=== PATIENT | male | born 1995 | race Caucasian/White ===

== ENCOUNTER 2019-07-11 20:16 | Emergency (ER) | payer OTHER ==
[~2019-07-11] VITALS: Ht 177.8 cm; Wt 92.3 kg
[2019-07-11] MEDS ORDERED: ANUS2.5C2 TOP (21:35)
[2019-07-11 21:54] VITALS: BP 138/79
== END 2019-07-11 22:00 | disposition home or self-care (01) ==
LOC: M ED 20:16
DX: K64.5 Perianal venous thrombosis (principal); F17.200 Nicotine dependence, unspecified, uncomplicated

== ENCOUNTER 2019-08-15 16:22 | Emergency (ER) | payer OTHER ==
[~2019-08-15] VITALS: Ht 177.8 cm; Wt 94.1 kg
[~2019-08-15 16:22] MED LIST: ANUS2.5C2 TOP
[2019-08-15] MEDS ORDERED: ONDANSETRON 4MG/2ML VIAL (J2405) IV ONE (17:00)
[2019-08-15] MEDS ORDERED: KETOROLAC 30 MG/ML VIAL (J1885) IV ONE (17:00)
[2019-08-15] MEDS ORDERED: ISOVUE-370 76% 100ML VIAL (Q9967) As Ordered ONE (17:05)
[2019-08-15 17:17] LABS: BASO % 0.3 % (0.0-1.0); EOS # 0.1 10^3/uL (0.0-0.5); EOS % 0.6 % (0.0-3.0); HEMATOCRIT 51.9 % (42.0-52.0); HEMOGLOBIN 17.1 g/dl (13.5-17.5); LYMPH # 0.5 10^3/uL (1.5-5.0); LYMPH % 4.7 % (24.0-44.0); MEAN CORPUSCULAR HEMOGLOBIN 29.5 pg (27.0-33.0); MEAN CORPUSCULAR HGB CONC 32.9 g/dl (32.0-36.5); MEAN CORPUSCULAR VOLUME 89.6 fl (80.0-96.0); MONO # 0.4 10^3/uL (0.0-0.8); MONO % 3.4 % (0.0-5.0); NEUTROPHILS # 10.2 10^3/uL (1.5-8.5); NEUTROPHILS % 90.6 % (36.0-66.0); PLATELET COUNT, AUTOMATED 183 10^3/uL (150-450); RED BLOOD COUNT 5.79 10^6/uL (4.30-6.10); WHITE BLOOD COUNT 11.3 10^3/uL (4.0-10.0)
--- NOTE | 2019-08-15 17:31 | REPVR ---
PROCEDURE INFORMATION: Exam: CT Abdomen And Pelvis With Contrast Exam date and time: 08/15/2019 4:50 PM Age: 23 years old Clinical indication: Abdominal pain; Additional info: Rlq pain TECHNIQUE: Imaging protocol: Computed tomography of the abdomen and pelvis with intravenous contrast. Axial, coronal and sagittal reformatted images were created and reviewed. Radiation optimization: All CT scans at this facility use at least one of these dose optimization techniques: automated exposure control; mA and/or kV adjustment per patient size (includes targeted exams where dose is matched to clinical indication); or iterative reconstruction. Contrast material: ISOVUE 370; Contrast volume: 100 ml; Contrast route: IV; COMPARISON: No relevant prior studies available. FINDINGS: Liver: Mild hepatomegaly. Gallbladder and bile ducts: No radiodense gallstones. No biliary ductal dilatation. Pancreas: Unremarkable. Spleen: Unremarkable. Adrenals: Unremarkable. Kidneys and ureters: No mass. No radiodense calculi. No hydronephrosis. Stomach and bowel: Non-dilated, fluid filled, mildly hyperemic loops of small bowel, some of which are mildly thickened. No obstruction. No pneumatosis. Appendix: Mild distention of the mid appendix with distal tapering. No significant periappendiceal inflammatory change. Intraperitoneal space: No free fluid. No organized fluid collection. No free air. Vasculature: Unremarkable. No aneurysm. Lymph nodes: Small mesenteric lymph nodes, likely reactive. No pathologically enlarged lymph nodes. Bladder: Mild circumferential urinary bladder wall thickening, likely secondary to underdistention. Reproductive: Unremarkable. Bones/joints: No acute osseous abnormality. Soft tissues: Small, fat-containing umbilical hernia. IMPRESSION: 1. Non-dilated, fluid filled, mildly hyperemic loops of small bowel, some of which are mildly thickened. Findings are compatible with nonspecific enteritis. No abscess, obstruction or free air. 2. Mild distention of the mid appendix with distal tapering. No significant periappendiceal inflammatory change. Acute appendicitis is considered unlikely. If the patient has persistent or worsening clinical signs and symptoms of acute appendicitis, followup imaging may be obtained. 3. Additional findings, as above. Electronically signed by: Kingston Solitario On 08/15/2019 17:31:24 PM
[2019-08-15 17:41] LABS: ALBUMIN 4.1 GM/DL (3.2-5.2); BILIRUBIN,DIRECT 0.2 MG/DL (0.0-0.2); TOTAL PROTEIN 7.3 GM/DL (6.4-8.2)
[2019-08-15 17:46] LABS: INR 1.1; PROTHROMBIN TIME 13.9 SECONDS (11.8-14.0)
[2019-08-15 17:47] LABS: PARTIAL THROMBOPLASTIN TIME 27.5 SECONDS (25.0-38.4)
[2019-08-15] MEDS ORDERED: ONDA4TAB6 PO (18:14)
[2019-08-15 18:21] VITALS: BP 135/59
== END 2019-08-15 18:29 | disposition home or self-care (01) ==
LOC: M ED 16:22
DX: K52.9 Noninfective gastroenteritis and colitis, unspecified (principal); F17.210 Nicotine dependence, cigarettes, uncomplicated
CPT/HCPCS: 74177; 80047; 80076; 81001; 83690; 85025; 85610; 85730; 96374; 96375; 99284; J1885; J2405; Q9967

== ENCOUNTER 2019-10-14 23:08 | Emergency (ER) | payer OTHER ==
[~2019-10-14] VITALS: Ht 177.8 cm; Wt 100.0 kg
[~2019-10-14 23:08] MED LIST changes: +ONDA4TAB6 PO
[2019-10-14] MEDS ORDERED: PRIL20TA2 PO (23:19)
[2019-10-15 00:14] LABS: INFLUENZA A AMPLIFICATION NEGATIVE (NEGATIVE); INFLUENZA B AMPLIFICATION POSITIVE (NEGATIVE)
[2019-10-15] MEDS ORDERED: BENZONATATE 100 MG CAP PO ONE (00:45)
[2019-10-15] MEDS ORDERED: ACETAMINOPHEN 325 MG TAB PO ONE (00:45)
[2019-10-15] MEDS ORDERED: ONDANSETRON 4 MG ORAL DISINTEGRATING TAB (Q0162 PER 1MG) PO ONE (00:45)
[2019-10-15] MEDS ORDERED: ALBUTEROL SULFATE 2.5 MG/0.5 ML INH NEB SOLN NEB ONE (00:45)
[2019-10-15] MEDS ORDERED: PROAAER10 INH (01:38)
[2019-10-15] MEDS ORDERED: TESS100C PO (01:38)
[2019-10-15] MEDS ORDERED: OSEL75CA PO (01:38)
[2019-10-15] MEDS ORDERED: ONDA4TAB6 PO (01:38)
[2019-10-15 01:45] VITALS: BP 122/65
[2019-10-15] MEDS ORDERED: OSELTAMIVIR PHOSPHATE 75 MG CAP (TAMIFLU) PO ONE (01:45)
--- NOTE | 2019-10-15 09:35 | REP ---
Clinical: Cough and rales . Comparison: None . Technique: PA and lateral. Findings: The mediastinum and cardiac silhouette are normal. The lung ramos are clear and without acute consolidation, effusion, or pneumothorax. The skeletal structures are intact and normal. Impression: 1. No acute cardiopulmonary process. Electronically Signed by Eleazar Rose MD 10/15/2019 09:26 A
== END 2019-10-15 01:48 | disposition home or self-care (01) ==
LOC: M ED 23:08
DX: J10.1 Influenza due to other identified influenza virus with other respiratory manifestations (principal); Z79.899 Other long term (current) drug therapy
CPT/HCPCS: 71046; 87502; 94640; 99284; Q0162

== ENCOUNTER 2019-11-16 17:16 | Emergency (ER) | payer OTHER ==
[~2019-11-16] VITALS: Ht 177.8 cm; Wt 99.9 kg
[2019-11-16 17:16] VITALS: BP 126/67
[~2019-11-16 17:16] MED LIST changes: +OSEL75CA PO; +PRIL20TA2 PO; +PROAAER10 INH; +TESS100C PO
[2019-11-16] MEDS ORDERED: ONDANSETRON 4 MG ORAL DISINTEGRATING TAB (Q0162 PER 1MG) PO ONE (17:45)
[2019-11-16] MEDS ORDERED: KETOROLAC TROMETHAMINE 10 MG TAB PO ONE (17:45)
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
[2019-11-16] MEDS ORDERED: ONDA4TAB6 PO (18:10)
== END 2019-11-16 18:15 | disposition home or self-care (01) ==
LOC: M ED 17:16
DX: S09.90XA Unspecified injury of head, initial encounter (principal); R11.0 Nausea; R42 Dizziness and giddiness; W51.XXXA Accidental striking against or bumped into by another person, initial encounter; Y92.138 Other place on military base as the place of occurrence of the external cause; Y93.89 Activity, other specified; Y99.1 Military activity; K22.70 Barrett's esophagus without dysplasia; Z79.899 Other long term (current) drug therapy
CPT/HCPCS: 70450; 99282; Q0162

== ENCOUNTER 2019-12-30 02:52 | Observation (INO) | payer OTHER ==
[~2019-12-30] VITALS: Ht 180.3 cm; Wt 96.0 kg
[2019-12-30 03:24] LABS: BASO % 0.2 % (0.0-1.0); EOS # 0.7 10^3/uL (0.0-0.5); EOS % 7.5 % (0.0-3.0); HEMATOCRIT 42.5 % (42.0-52.0); HEMOGLOBIN 14.6 g/dl (13.5-17.5); LYMPH # 1.4 10^3/uL (1.5-5.0); LYMPH % 15.2 % (24.0-44.0); MEAN CORPUSCULAR HEMOGLOBIN 29.2 pg (27.0-33.0); MEAN CORPUSCULAR HGB CONC 34.4 g/dl (32.0-36.5); MONO # 0.7 10^3/uL (0.0-0.8); NEUTROPHILS # 6.4 10^3/uL (1.5-8.5); NEUTROPHILS % 69.5 % (36.0-66.0); PLATELET COUNT, AUTOMATED 332 10^3/uL (150-450); WHITE BLOOD COUNT 9.3 10^3/uL (4.0-10.0)
[2019-12-30 03:26] LABS: VENOUS BASE EXCESS 0.7 (-2.0-2.0); VENOUS HCO3 24.3 MEQ/L (23.0-27.0); VENOUS O2 SATURATION 89.3 % (60.0-80.0); VENOUS PARTIAL PRESSURE CO2 35.7 mmHg (38.0-50.0); VENOUS PARTIAL PRESSURE O2 53.9 mmHg (30.0-50.0); VENOUS STANDARD HCO3 24.9 MEQ/L; VENOUS TOTAL CO2 25.4 MEQ/L (24.0-28.0)
[2019-12-30 03:49] LABS: ALBUMIN 3.4 GM/DL (3.2-5.2); ALT/SGPT 24 U/L (12-78); BILIRUBIN,DIRECT 0.1 MG/DL (0.0-0.2); BILIRUBIN,TOTAL 0.4 MG/DL (0.2-1.0); BLOOD UREA NITROGEN 10 MG/DL (7-18); CARBON DIOXIDE LEVEL 27 MEQ/L (21-32); CHLORIDE LEVEL 103 MEQ/L (98-107); CK-MB VALUE MASS 1.5 NG/ML (<3.6); CPK CREATINE PHOSPHOKINASE 199 U/L (39-308); CREATININE FOR GFR 1.01 MG/DL (0.70-1.30); GLOMERULAR FILTRATION RATE > 60.0 (>60); GLUCOSE, FASTING 98 MG/DL (70-100); MB/CK RELATIVE INDEX 0.75 (< OR =4); POTASSIUM SERUM 3.6 MEQ/L (3.5-5.1); SODIUM LEVEL 138 MEQ/L (136-145); TOTAL PROTEIN 6.8 GM/DL (6.4-8.2); TROPONIN I < 0.02 NG/ML (< 0.10)
[2019-12-30] MEDS ORDERED: COMBIVENT RESPIMAT 100-20MCG INHALER 4GM INH ONE (04:15)
[2019-12-30] MEDS ORDERED: ISOVUE-370 76% 100ML VIAL As Ordered ONE (05:33)
--- NOTE | 2019-12-30 06:24 | REPVR ---
PROCEDURE INFORMATION: Exam: CT Angiography Chest With Contrast Exam date and time: 12/30/2019 5:26 AM Age: 24 years old Clinical indication: Cough; Additional info: Cough, hypoxia, tachycardia TECHNIQUE: Imaging protocol: Computed tomographic angiography of the chest with intravenous contrast. 3D rendering: MIP and/or 3D reconstructed images were created by the technologist. Radiation optimization: All CT scans at this facility use at least one of these dose optimization techniques: automated exposure control; mA and/or kV adjustment per patient size (includes targeted exams where dose is matched to clinical indication); or iterative reconstruction. Contrast material: ISO; Contrast volume: 75 ml; Contrast route: AC; COMPARISON: CR Chest, 1 view 12/30/2019 3:16 AM FINDINGS: Pulmonary arteries: The main pulmonary artery measures 26 mm. No pulmonary embolism is identified. Aorta: The ascending thoracic aorta measures 27 mm. Lungs: Mild bilateral reticulonodular infiltrates, greatest in the lower lobes and right upper lobe. Pleural space: Unremarkable. No pneumothorax. No pleural effusion. Heart: Unremarkable. No cardiomegaly. No pericardial effusion. Mediastinum: There is soft tissue conforming to the anterior mediastinum consistent with residual thymic tissue. Lymph nodes: Borderline bilateral hilar adenopathy. Bones/joints: Unremarkable. No acute fracture. Soft tissues: Unremarkable. IMPRESSION: 1. Mild bilateral reticulonodular infiltrates, greatest in the lower lobes and right upper lobe consistent with pneumonia. 2. Borderline bilateral hilar adenopathy which is likely reactive. 3. Otherwise negative CTA chest. No pulmonary embolism is identified. Electronically signed by: Eric Jacobson On 12/30/2019 06:23:37 AM
[2019-12-30] MEDS ORDERED: AZITHROMYCIN 250MG TABLET PO ONE (06:30)
[2019-12-30] MEDS ORDERED: PROAAER10 INH (06:37)
--- NOTE | 2019-12-30 06:39 | ECGEPIP ---
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
--- NOTE | 2019-12-30 08:06 | REP ---
Clinical: Cough . Comparison: 10/15/2019 . Findings: The mediastinum and cardiac silhouette are stable and within normal limits for portable technique. Very subtle scattered alveolar infiltrates are suggested (left greater than right). No effusion. No pneumothorax. Skeletal structures are intact. Impression: A very subtle multifocal pneumonitis is suggested. Electronically Signed by Eleazar Rose MD 12/30/2019 07:57 A
--- NOTE | 2019-12-30 08:42 | HPEPDOC ---
[facility] Medical History & Physical Date of Admission December 30, 2019 Date of Service: December 30, 2019 Attending Physician: HUMERA MONTES MD History and Physical CHIEF COMPLAINT: SOB HISTORY OF PRESENT ILLNESS: 24-year-old smoker with no past medical history resides from home with sudden onset of shortness of breath, pleuritic chest pain and productive cough. Patient was feeling well up until this morning when he developed the symptoms, denies sick contacts, denies fever, no other complaints. 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 Patient was hypoxemic in the ED, requiring supplemental oxygen of 2 L via nasal cannula, CTA chest shows bilateral reticulonodular infiltrates, respiratory viral panel is positive for mycoplasma pneumonia. Patient denies any nausea, vomiting, bowel pain, diarrhea or constipation. 10 point review of systems negative except for above PAST MEDICAL HISTORY: 1. None. PAST SURGICAL HISTORY: 1. None SOCIAL HISTORY: 1 PPD smoker denies alcohol use denies drug use FAMILY HISTORY: Positive for breast cancer ALLERGIES: Please see below. HOME MEDICATIONS: Please see below. PHYSICAL EXAMINATION: VITAL SIGNS: Please see below. GENERAL: No distress HEENT: Normocephalic, atraumatic, moist mucous membranes NECK: Supple CARDIOVASCULAR EXAMINATION: S1, S2, no murmurs RESPIRATORY EXAMINATION: Scattered rhonchi, no wheezing ABDOMINAL EXAMINATION: Soft, nontender, nondistended, positive bowel sounds EXTREMITIES: Range of motion intact SKIN: No rash NEUROLOGICAL EXAMINATION: Alert and oriented 3, no focal deficits PSYCHIATRIC EXAMINATION: Calm and cooperative LABORATORY DATA: See below. IMAGING: CT showing bilateral reticulonodular infiltrates MICROBIOLOGY: Please see below. ASSESSMENT: 24 y.o smoker with no medical history is being admitted for hypoxemia secondary to Mycoplasma Pneumonia. PLAN: 1. Mycoplasma pneumonia. Status post of tamoxifen 500 mg in the ED, continue azithromycin 250 mg daily for 4 more days, supportive care. 2. Hypoxemia. Secondary to above, supplemental oxygen as needed to maintain O2 sats between 88-92%. I suspect patient will be titrated off oxygen over the next 24-48 hours and discharged home. Vital Signs Vital Signs Date Time Temp Pulse Resp B/P (MAP) Pulse Ox O2 Delivery O2 Flow Rate FiO2 12/30/19 07:13 99.9 18 94 Nasal Cannula 2.0 12/30/19 06:15 87 110/53 (72) Laboratory Data Labs 24H Laboratory Tests 2 12/30/19 03:09: Immature Granulocyte % (Auto) 0.6, Neutrophils (%) (Auto) 69.5H, Lymphocytes (%) (Auto) 15.2L, Monocytes (%) (Auto) 7.0H, Eosinophils (%) (Auto) 7.5H, Basophils (%) (Auto) 0.2, Neutrophils # (Auto) 6.4, Lymphocytes # (Auto) 1.4L, Monocytes # (Auto) 0.7, Eosinophils # (Auto) 0.7H, Basophils # (Auto) 0.0, Nucleated Red Blood Cells % (auto) 0.0, D-Dimer, Quantitative 775.94H, Blood Gas Bicarbonate Standard 24.9, Venous Blood pH 7.450H, Venous Blood Partial Pressure CO2 35.7L, Venous Blood Partial Pressure O2 53.9H, Venous Blood Total Carbon Dioxide 25.4, Venous Blood HCO3 24.3, Venous Blood Oxygen Saturation 89.3H, Venous Blood Base Excess 0.7, Anion Gap 8, Glomerular Filtration Rate > 60.0, Lactic Acid Level 1.0, Calcium Level 8.0L, Total Bilirubin 0.4, Direct Bilirubin 0.1, Aspartate Amino Transf (AST/SGOT) 13, Alanine Aminotransferase (ALT/SGPT) 24, Alkaline Phosphatase 59, Total Creatine Kinase 199, Creatine Kinase MB 1.5, Creatine Kinase MB Relative Index 0.75, Troponin I < 0.02, Total Protein 6.8, Albumin 3.4, Albumin/Globulin Ratio 1.00, Coronavirus (COVID-19)(PCR) NEGATIVE CBC/BMP Laboratory Tests 12/30/19 03:09 Microbiology Microbiology 12/30/19 Gram Stain, Received Pending 12/30/19 Sputum Culture, Received Pending 12/30/19 Respiratory Virus Panel (PCR) ([facility]) - Final, Complete Mycoplasma Pneumoniae 12/30/19 Blood Culture, Received Pending 12/30/19 Blood Culture, Received Pending Home Medications Scheduled PRN Albuterol Sulfate (Proair Hfa) 8.5 Gm Hfa.aer.ad, 2 PUFF INH Q4H PRN for SOB/WHEEZING Allergies Coded Allergies: No Known Drug Allergies (Verified Allergy, Unknown, 07/11/19) A-FIB/CHADSVASC A-FIB History Current/History of A-Fib/PAF?: No HUMERA MONTES MD December 30, 2019 08:42
[2019-12-30 09:30] VITALS: BP 132/81
[2019-12-30 14:00] VITALS: BP 134/79
[2019-12-30 22:00] VITALS: BP 144/95
[2019-12-31] VITALS (7 sets, daily range): BP systolic 114–138; BP diastolic 70–79; O2SAT 91–95
[2019-12-31 07:08] LABS: ALBUMIN 3.3 GM/DL (3.2-5.2); ALT/SGPT 21 U/L (12-78); BILIRUBIN,TOTAL 0.7 MG/DL (0.2-1.0); BLOOD UREA NITROGEN 10 MG/DL (7-18); CALCIUM LEVEL 8.8 MG/DL (8.5-10.1); CARBON DIOXIDE LEVEL 24 MEQ/L (21-32); CHLORIDE LEVEL 103 MEQ/L (98-107); CREATININE FOR GFR 1.05 MG/DL (0.70-1.30); GLOMERULAR FILTRATION RATE > 60.0 (>60); GLUCOSE, FASTING 92 MG/DL (70-100); SODIUM LEVEL 136 MEQ/L (136-145); TOTAL PROTEIN 6.9 GM/DL (6.4-8.2)
[2019-12-31] MEDS: LevoFLOXacin 750 MG TABLET PO SCH (08:55)
[2019-12-31] MEDS ORDERED: AZITHROMYCIN 250MG TABLET PO SCH (09:00)
[2019-12-31] MEDS ORDERED: ACETAMINOPHEN TAB 650MG DOSE (2X325MG) PO PRN (09:00)
--- NOTE | 2019-12-31 16:56 | IPNPDOC ---
Date Seen The patient was seen on 12/31/19. Progress Note SUBJECTIVE: 24-year-old male with no sediment past medical history is admitted for pneumonia. Patient clinically unchanged since yesterday, continues have mild dyspnea and productive cough, no changes, continues to require supplemental oxygen via nasal cannula, no new complaints. He continues to have mild pleuritic chest pain, denies any nausea, vomiting or pain, diarrhea or constipation. 10 point review of systems negative except for above PHYSICAL EXAMINATION: VITAL SIGNS: Please see below. GENERAL: No distress HEENT: Normocephalic, atraumatic, moist mucous membranes NECK: Supple CARDIOVASCULAR EXAMINATION: S1, S2, no murmurs RESPIRATORY EXAMINATION: Scattered rhonchi, no wheezing ABDOMINAL EXAMINATION: Soft, nontender, nondistended, positive bowel sounds EXTREMITIES: Range of motion intact SKIN: No rash NEUROLOGICAL EXAMINATION: Alert and oriented 3, no focal deficits PSYCHIATRIC EXAMINATION: Calm and cooperative LABORATORY DATA: See below. MICROBIOLOGY: Please see below. ASSESSMENT: 24 y.o smoker with no medical history is admitted for Mycoplasma pneumonia. PLAN: 1. Mycoplasma pneumonia. Sputum Gram stain noted, patient febrile overnight, antibiotics, switched to Levaquin. Continue supplemental oxygen as needed to maintain O2 sats between 88- 92%. [facility]O Vital Signs Date Time Temp Pulse Resp B/P (MAP) Pulse Ox O2 Delivery O2 Flow Rate FiO2 12/31/19 15:00 91 Room Air 12/31/19 14:00 98.6 85 19 138/79 (98) 1.0 I&O- Last 24 Hours up to 6 AM 12/31/19 05:59 Intake Total 1400 ml Output Total 0 ml Balance 1400 ml Laboratory Data 24H LABS Laboratory Tests 2 12/31/19 05:51: Anion Gap 9, Glomerular Filtration Rate > 60.0, Calcium Level 8.8, Total Bilirubin 0.7#, Aspartate Amino Transf (AST/SGOT) 16, Alanine Aminotransferase (ALT/SGPT) 21, Alkaline Phosphatase 62, Total Protein 6.9, Albumin 3.3, Albumin/Globulin Ratio 0.92L CBC/BMP Laboratory Tests 12/31/19 05:51 Microbiology Microbiology 12/30/19 Gram Stain - Final, Resulted 12/30/19 Sputum Culture, Resulted Pending 12/30/19 Respiratory Virus Panel (PCR) ([facility]) - Final, Complete Mycoplasma Pneumoniae 12/30/19 Blood Culture - Preliminary, Resulted No growth after 24 hours . All specim... 12/30/19 Blood Culture - Preliminary, Resulted No growth after 24 hours . All specim... HUMERA MONTES MD December 31, 2019 16:56
[2020-01-01] MEDS: LevoFLOXacin 750 MG TABLET PO SCH (05:30)
[2020-01-01 06:00] VITALS: BP 135/81
[2020-01-01 09:00] VITALS: O2SAT 93
[2020-01-01] MEDS ORDERED: LEVA750T7 PO (10:24)
--- NOTE | 2020-01-01 10:36 | DS.PDOC ---
Discharge Summary General Date of Admission December 30, 2019 at 02:53 Date of Discharge 01/01/20 Attending Physician: HUMERA MONTES MD Discharge Summary PROCEDURES PERFORMED DURING STAY: None. ADMITTING DIAGNOSES: 1. Mycoplasma pneumonia, hypoxemia. DISCHARGE DIAGNOSES: 1. Mycoplasma pneumonia, hypoxemia. COMPLICATIONS/CHIEF COMPLAINT: Hypoxemia, Mycoplasma Pneumoniae Pneumonia. HISTORY OF PRESENT ILLNESS: 24-year-old male with no past medical history, current smoker, was admitted for hypoxemia secondary to mycoplasma pneumonia. Patient was initially treated with doxycycline, continues to develop fever and sputum Gram stain showed gram-positive and gram-negative organisms, antibiotics were switched to Levaquin. Patient has remained afebrile and has not required any supplemental oxygen since yesterday. Patient is back to his baseline, without any complaints in the morning, denies dyspnea or cough. Patient is hemodynamically stable for discharge at this time. HOSPITAL COURSE: As above. DISCHARGE MEDICATIONS: Please see below. ALLERGIES: Please see below. PHYSICAL EXAMINATION: VITAL SIGNS: Please see below. GENERAL: No distress HEENT: Normocephalic, atraumatic, moist mucous membranes NECK: Supple CARDIOVASCULAR EXAMINATION: S1, S2, no murmurs RESPIRATORY EXAMINATION: Scattered rhonchi, no wheezing ABDOMINAL EXAMINATION: Soft, nontender, nondistended, positive bowel sounds EXTREMITIES: Range of motion intact SKIN: No rash NEUROLOGICAL EXAMINATION: Alert and oriented 3, no focal deficits PSYCHIATRIC EXAMINATION: Calm and cooperative LABORATORY DATA: Please see below. IMAGING: CT chest showing reticulonodular infiltrates PROGNOSIS: Good ACTIVITY: As tolerated. DIET: Regular DISCHARGE PLAN: Follow-up with PCP in 1-2 weeks DISPOSITION: Home. DISCHARGE INSTRUCTIONS: 1. As above. DISCHARGE CONDITION: Stable. TIME SPENT ON DISCHARGE: Less than 30 minutes. Vital Signs/I&Os Vital Signs Date Time Temp Pulse Resp B/P (MAP) Pulse Ox O2 Delivery O2 Flow Rate FiO2 01/01/20 09:00 93 Room Air 01/01/20 06:00 98.6 97 20 135/81 (99) 12/31/19 14:00 1.0 I&O- Last 24 Hours up to 6 AM 01/01/20 06:00 Intake Total 1840 ml Balance 1840 ml Microbiology Microbiology 12/30/19 Gram Stain - Final, Complete 12/30/19 Sputum Culture - Final, Complete 12/30/19 Respiratory Virus Panel (PCR) ([facility]) - Final, Complete Mycoplasma Pneumoniae 12/30/19 Blood Culture - Preliminary, Resulted No Growth after 48 hours. All Specime... 12/30/19 Blood Culture - Preliminary, Resulted No Growth after 48 hours. All Specime... Discharge Medications Scheduled Levofloxacin (Levaquin) 750 Mg Tablet, 750 MG PO DAILY@0600 Scheduled PRN Albuterol Sulfate (Proair Hfa) 8.5 Gm Hfa.aer.ad, 2 PUFF INH Q4H PRN for SOB/WHEEZING, (Reported) Allergies Coded Allergies: No Known Drug Allergies (Verified Allergy, Unknown, 07/11/19) HUMERA MONTES MD January 01, 2020 10:36
== END 2020-01-01 11:33 | disposition home or self-care (01) ==
LOC: M ED 02:52 → M ED INP 02:53 → ENRESERV 08:48 → M MSPAV 09:30
PROVIDERS: ADMIT Internal Medicine; ATTEND Internal Medicine
DX: J15.7 Pneumonia due to Mycoplasma pneumoniae (principal); R09.02 Hypoxemia; R07.1 Chest pain on breathing; F17.210 Nicotine dependence, cigarettes, uncomplicated; Z79.2 Long term (current) use of antibiotics
CPT/HCPCS: 36415; 71045; 71275; 80048; 80053; 80076; 82550; 82553; 82803; 83605; 84145; 84484; 85025; 85379; 87040; 87070; 87205; 87486; 87581; 87633; 87798; 93005; 93041; 94760; 99285; Q9967; U0002